=== PATIENT | female | born 1975 | race Caucasian/White ===

== ENCOUNTER 2017-12-07 12:01 | Outpatient (CLI) | payer BC ==
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
== END 2017-12-07 12:02 | disposition home or self-care (01) ==
LOC: MADRAD 12:01
PROVIDERS: ATTEND Family Medicine
DX: S05.92XA Unspecified injury of left eye and orbit, initial encounter (principal)
CPT/HCPCS: 70486